=== PATIENT | female | born 1940 ===

== ENCOUNTER 2023-01-05 19:09 | Outpatient (BNV) | payer MEDICARE, MEDICAID, SELFPAY | END 2023-01-05 23:12 | PROVIDERS: Admitting Provider Psychiatry & Neurology Psychiatry; Visit Provider Internal Medicine Cardiovascular Disease | DX: I49.3 Ventricular premature depolarization (principal) | CPT/HCPCS: 93010 ==

== ENCOUNTER 2023-01-05 19:09 | Inpatient (IN) | payer MEDICARE, MEDICAID, SELFPAY ==
--- NOTE | 2023-01-05 | ECG_ITS ---
Test Reason : tranfer pt,r/o qtc prolongation Blood Pressure : / mmHG Vent. Rate : 093 BPM Atrial Rate : 093 BPM P-R Int : 180 ms QRS Dur : 074 ms QT Int : 380 ms P-R-T Axes : 074 059 069 degrees QTc Int : 472 ms Sinus rhythm with occasional Premature ventricular complexes Otherwise normal ECG No previous ECGs available Referred By: Jenny Martin Electronically Signed By:Enrico Shaw
[2023-01-05 19:55] VITALS: BP 158/69; PULSE 102; RESP 18; TEMP 36.7; O2SAT 96
[2023-01-05 21:23] LABS: Glucose, Whole Blood 128 mg/dL (60-115)
[2023-01-05] MEDS: Atorvastatin Calcium 20 MG TABLET 40 MG PO (21:34)
[2023-01-05] MEDS: hydrOXYzine HCL 25 MG TABLET PO (21:34)
[2023-01-05] MEDS: Mirtazapine 7.5 MG TABLET PO (21:34)
--- NOTE | 2023-01-06 00:09 | PC.ADMIT ---
Patient admitted to S1 on 01/05/23 at 1945 on 12b from [facility] due to increased aggressive behavior at correction. Staff at correction reports that patient? has been increasingly aggressive for several days which made several peers and staff feel unsafe. Patient has PMH of HLD, CAD, CHF, COPD, DM type 2 (on metformin), Upon arrival to the unit, patient is alert to self and year, otherwise pleasantly confused. Impulsive at times, but is able to be redirected. She is ambulating with walker, steady gait. Vital signs are stable, POC obtained. Patient is med compliant. Denies SI/HI/AH/VH but t/w did notice patient making remarks about other men being present around her, when there was no one there. Patient is too confused to participate in admission process, unable to answer any questions appropriately. One LEXI signed for daughterHattie (HCP).
[2023-01-06] MEDS: traZODone HCL 50 MG TABLET PO (01:06)
[2023-01-06] MEDS: Melatonin 3 MG TABLET 6 MG PO (01:06)
[2023-01-06 06:00] VITALS: BP 183/72; PULSE 91; RESP 18; TEMP 36; O2SAT 97
[2023-01-06 08:24] LABS: Estimated Average Glucose 171 mg/dL; Hemoglobin A1c % 7.6 %
[2023-01-06 08:48] LABS: Anion Gap 12 (12-20); Blood Urea Nitrogen 27 mg/dL (9-16); Calcium 9.2 mg/dL (8.4-10.2); Carbon Dioxide 25 mmol/L (22-29); Chloride 106 mmol/L (96-108); Estimated Glomerular Filt Rate 39; Glucose Random 133 mg/dL (60-115); Sodium 139 mmol/L (135-145)
[2023-01-06 08:58] LABS: Cholesterol 138 mg/dL; HDL Cholesterol 36 mg/dL; LDL Cholesterol Calculated 63 mg/dl; Magnesium 1.4 mg/dL (1.6-2.6); Triglycerides 196 mg/dL
[2023-01-06] MEDS: Albuterol/Iprat 2.5/0.5MG 3 ML AMPUL.NEB INHALE ×3 (09:05→20:50)
[2023-01-06] MEDS: Fluticasone/Vilanterol 200/25 BLST.W.DEV 1 PUFF INHALE (09:05)
[2023-01-06 09:13] LABS: Folate 12.6 ng/mL (> or = 4.0); Vitamin B12 587 pg/mL (200-900)
[2023-01-06 09:16] VITALS: PULSE 68; RESP 14; O2SAT 98
[2023-01-06] MEDS: metFORMIN HCl 1,000 MG TABLET 1000 MG PO ×2 (09:22→16:58)
[2023-01-06] MEDS: Fenofibrate 160 MG TABLET PO (09:22)
--- NOTE | 2023-01-06 10:41 | P.HPPS_ITS ---
HPI Date of Service: 01/06/23 Chief Complaint: F03.91 Sources of Information: patient interviewed, chart reviewed and crisis/core team assessment reviewed HPI Subjective Notes: [place] Warning and Conditional Voluntary Narrative: The patient is an 82-year-old female, with a were, mother of adult children, referred from the shelter facility to emergency room due to worsening agitation against peers and staff. The patient carries a diagnosis of dementia, she had prior strokes in 2020 and she had several medical comorbidit ies such as CAD, CHF and diabetes type 2. The patient was assessed on the emergency room, medically cleared and transferring to this facility for psychiatric stabilization. According to the crisis assessment, the patient in the ED thought that she was on a recent shipwreck and she was waiting for the next ship to board. On interview, the patient was very pleasant and cooperative but extremely confused, she did not know where she was and she wanted her family to let them know that she was here in this hospital. She denies auditory hallucinations, paranoia or visual hallucinations. Even though, she was very confused. We will try to gather more collateral information. Past Psychiatric History: According to the crisis assessment, the patient carries a diagnosis of dementia and she had 2 strokes 2 years ago. The patient is a very poor historian unable to provide past psychiatric history. Medical Evaluation Reviewed: Yes [facility] Medical History CHF (congestive heart failure) Chronic pain of right hand COPD (chronic obstructive pulmonary disease) Coronary artery disease GERD (gastroesophageal reflux disease) History of CA (myocardial infarction) Hyperlipidemia Hypertension Mitral regurgitation Osteoporosis Type 2 diabetes mellitus Surgical History Status post coronary angioplasty Family History: Denies Social History: Unable to get more information Substance History: Denies Trauma History: Denies Diagnostics Vital Signs (24Hr): Vital Signs - 24 hr 01/05/23 19:55 01/06/23 09:16 01/06/23 06:00 Temperature 98.0 F 96.8 F Pulse Rate 102 H 68 91 Respiratory Rate 18 14 18 Blood Pressure 158/69 H 183/72 H Pulse Oximetry 96 97 Oxygen Delivery Method Room Air Room Air Labs 01/06/23 08:02 Labs: Laboratory Results - last 48 hr 01/05/23 01/06/23 01/06/23 21:18 08:02 08:02 Sodium Potassium Chloride Carbon Dioxide Anion Gap BUN Creatinine Estim Creat Clear Calc Estimated GFR POC Glucose 128 H Random Glucose Estimat Average Glucose 171 Hemoglobin A1c % 7.6 Calcium Magnesium 1.4 L* Triglycerides 196 Cholesterol 138 LDL Cholesterol, Calc 63 HDL Cholesterol 36 Vitamin B12 Folate TSH 2.00 Free T4 1.10 01/06/23 01/06/23 08:02 08:02 Sodium 139 Potassium 4.0 Chloride 106 Carbon Dioxide 25 Anion Gap 12 BUN 27 H Creatinine 1.30 Estim Creat Clear Calc TNP Estimated GFR 39 POC Glucose Random Glucose 133 H Estimat Average Glucose Hemoglobin A1c % Calcium 9.2 Magnesium Triglycerides Cholesterol LDL Cholesterol, Calc HDL Cholesterol Vitamin B12 587 Folate 12.6 TSH Free T4 Meds/Allergies Allergies Allergies Allergy/AdvReac Type Severity Reaction Status Date / Time ibuprofen Allergy Unknown Unknown Verified 01/05/23 19:31 lansoprazole [From Prevacid] Allergy Unknown Unknown Verified 01/05/23 19:31 rosuvastatin [From Crestor] Allergy Unknown Unknown Verified 01/05/23 19:31 lipitor Allergy Unknown Unknown Uncoded 01/05/23 19:31 Mental Status Exam Mental Status Exam Patient Appearance: Appropriate (On hospital gowns) Patient Orientation: Person, Place and Situation Level of Consciousness: Awake, Disoriented and Alert Patient Behavior: Guarded and Passive Mood Description: Withdrawn Affect Description: Labile Patient Cognition Impaired: Yes Ability to Follow Directions: Fair Speech Pattern: Clear and Impoverished Hallucinations: None Delusions: Not Present Thought Process: Incoherent, Illogical and Distracted Thought Content: positive for [place] and positive for [place] of Content Judgement: Poor Assessment & Plan Assessment & Plan (1) Dementia: Status: Acute Code(s): F03.90 - Unspecified dementia, unspecified severity, without behavioral disturbance, psychotic disturbance, mood disturbance, and anxiety (2) Mood disorder: Status: Acute Code(s): F39 - Unspecified mood [affective] disorder Plan The patient is an elderly female with a prior history of status post strokes, CAD, CHF, diabetes type 2 and other medical comorbidities referred from the shelter facility to the emergency room due to increased agitation and confusion. The patient is very confused, very poor historian with try to gather more information from collaterals. At the moment of the intake, there was no evidence of medical concerns or exacerbation of agitation. Plan 1. Gather collateral information. The patient is a very poor historian. 2. We will continue with medical workout and follow recommendations of Medicine. 3. It seems that the patient's dementia is very advanced so will start with a low dose of Aricept tonight. 4. Since there was the evidence of prior agitation and poor impulse control we will start on a very low dose of Depakote at night. 5. Reassessment with results Patient educated on: diagnosis Informed Consent: does not understand Reason for continued inpatient stay Substantial Risk for: inability to function, rapid decompensation and med/psych decompensation Statement Statement: I have reviewed the history and physical and performed a pertinent examination on my patient. No changes have occurred unless specified. If the History and Physical was not performed prior to admission, the Hospitalist's service will be consulted for completing the admission physical. Time Spent With Patient Time: Total time managing care of this patient today __45__ minutes.
--- NOTE | 2023-01-06 12:04 | HO.PM.IMCN ---
History of Present Illness Data of Consult Service Date: 01/06/23 Requesting physician: Figueroa Peña Primary Care Provider: Unknown Physician HPI Reason for consult: medical management 82-year-old female with history of chronic right hand pain, [id number]-eezerlbte type 2 diabetes, diabetic cataracts, CHF, coronary artery disease with history LA s/p PCI in 2018 and ANJALI 2004, mitral regurgitation, GERD, osteoporosis, and hyperlipidemia admitted to Psychiatry from [facility] with consult placed to hospitalist service for medical H&P. She resides val SNF and has had increased confusion and agitation. While in the ED, urinalysis was unremarkable. She was noted have a normocytic anemia with H/H 10.45/32.3%. GFR was 54. Magnesium was 1.1. EKG showed normal sinus rhythm, rate 87, no ST T wave abnormality. Chest x-ray was negative. She is a former smoker who quit in 2003 is not use any illicit drugs or alcohol use. She has no complaints at this time. Review of Systems Review of Systems: General: No fevers, malaise, unintentional weight loss HEENT: No blurred vision, diplopia. No sore throat, nasal congestion, rhinorrhea, sinus pain, ear pain Cardiovascular: No chest pain, palpitations, or leg edema Respiratory: No shortness of breath, wheezing, cough GI: No abdominal pain, nausea, vomiting, diarrhea, constipation, melena, hematochezia : No dysuria, hematuria, increased urinary frequency, decreased urinary output MSK: No myalgia, back pain Neuro: No headaches, weakness, paresthesias Skin: No rashes or lesions [facility] Medical History CHF (congestive heart failure) Chronic pain of right hand COPD (chronic obstructive pulmonary disease) Coronary artery disease GERD (gastroesophageal reflux disease) History of LA (myocardial infarction) Hyperlipidemia Hypertension Mitral regurgitation Osteoporosis Type 2 diabetes mellitus Surgical History Status post coronary angioplasty Social History Household Members: Unknown / Unable to assess Housing: House Patient Tobacco Use Status: Former Tobacco user Quit Date: quit in 2003 Patient Interested in Nicotine Replacement: No Patient Given Instructions on How to Stop Smoking: No Use of substances other than those prescribed or required for medical reasons: No Currently Displaying Signs/Symptoms of Drug Intoxication Withdrawal: No Spiritual Healthcare Practices: unable to answer Yarsani Healthcare Practices: unable to answer Advance Directives: No Advance Directives Information Provided: No Do you have thoughts of harming others: None Do you have a plan to hurt others: No Plan Recently lost weight without trying: Unsure Patient : No : No Poor oral hygiene: No Meds Allergies Allergy/AdvReac Type Severity Reaction Status Date / Time ibuprofen Allergy Unknown Unknown Verified 01/05/23 19:31 lansoprazole [From Prevacid] Allergy Unknown Unknown Verified 01/05/23 19:31 rosuvastatin [From Crestor] Allergy Unknown Unknown Verified 01/05/23 19:31 lipitor Allergy Unknown Unknown Uncoded 01/05/23 19:31 Active Medications: Current Medications Acetaminophen (Acetaminophen 325 Mg Tablet) 650 mg PO Q6H PRN PRN Reason: Headache/Pain Mild Scale (1-3) Al Hydroxide/Mg Hydroxide (Magnesium Hydrox/Alum Hydrox 30 Ml Oral.Susp) 30 ml PO Q6H PRN PRN Reason: Heartburn/Nausea Albuterol/Ipratropium (Albuterol/Iprat 2.5/0.5mg 3 Ml Ampul.Neb) 3 ml INHALE RQ6H WHILE AWAKE [facility] Last Admin: 01/06/23 09:05 Dose: 3 ml Atorvastatin Calcium (Atorvastatin Calcium 20 Mg Tablet) 40 mg PO BEDTIME [facility] Last Admin: 01/05/23 21:34 Dose: 40 mg Fenofibrate (Fenofibrate 160 Mg Tablet) 160 mg PO DAILY [facility] Last Admin: 01/06/23 09:22 Dose: 160 mg Fluticasone/Vilanterol (Fluticasone/Vilanterol 200/25 Blst.W.Dev) 1 puff INHALE RDAILY [facility] Last Admin: 01/06/23 09:05 Dose: 1 puff Magnesium Hydroxide (Milk Of Magnesia 30 Ml Oral.Susp) 30 ml PO DAILY PRN PRN Reason: Constipation Melatonin (Melatonin 3 Mg Tablet) 6 mg PO BEDTIME PRN PRN Reason: Insomnia Last Admin: 01/06/23 01:06 Dose: 6 mg Metformin HCl (Metformin Hcl 1,000 Mg Tablet) 1,000 mg PO BIDWM [facility] Last Admin: 01/06/23 09:22 Dose: 1,000 mg Mirtazapine (Mirtazapine 7.5 Mg Tablet) 7.5 mg PO BEDTIME VERA Last Admin: 01/05/23 21:34 Dose: 7.5 mg Olanzapine (Olanzapine 5 Mg Tablet) 5 mg PO Q6H PRN PRN Reason: agitation, aggression Trazodone HCl (Trazodone Hcl 50 Mg Tablet) 50 mg PO BEDTIME MRX1 PRN PRN Reason: Insomnia Last Admin: 01/06/23 01:06 Dose: 50 mg Trazodone HCl (Trazodone Hcl 25 Mg Halftab) 25 mg PO TID PRN PRN Reason: Anxiety Physical Exam Vital Signs and Narrative: Vital Signs: Last Vital Signs Temp 96.8 F 01/06/23 06:00 Pulse 68 01/06/23 09:16 Resp 14 01/06/23 09:16 BP 183/72 H 01/06/23 06:00 Pulse Ox 97 01/06/23 06:00 O2 Del Method Room Air 01/06/23 06:00 Constitutional - Awake and Alert, No apparent distress Eyes - PERRLA, EOMI Cardiovascular - S1S2, RRR, No edema Respiratory - Normal lung expansion, Normal respiratory effort, No respiratory distress, CTA bilaterally Gastrointestinal - NT / ND; +BS; No rebound or guarding Extremities - no calf tenderness bilaterally, no swelling Musculoskeletal - Normal inspection, normal ROM Skin - Warm/Dry Neurological - Alert & oriented x3, CN II-XII in tact, 5/5 strength BUE and BLE Psychological - Appropriate affect Results Labs 01/06/23 08:02 Labs: Laboratory Results - last 24 hr 01/05/23 01/06/23 01/06/23 21:18 08:02 08:02 Anion Gap Estim Creat Clear Calc Estimated GFR POC Glucose 128 H Random Glucose Estimat Average Glucose 171 Hemoglobin A1c % 7.6 Calcium Magnesium 1.4 L* Triglycerides 196 Cholesterol 138 LDL Cholesterol, Calc 63 HDL Cholesterol 36 Vitamin B12 Folate TSH 2.00 Free T4 1.10 01/06/23 01/06/23 08:02 08:02 Anion Gap 12 Estim Creat Clear Calc TNP Estimated GFR 39 POC Glucose Random Glucose 133 H Estimat Average Glucose Hemoglobin A1c % Calcium 9.2 Magnesium Triglycerides Cholesterol LDL Cholesterol, Calc HDL Cholesterol Vitamin B12 587 Folate 12.6 TSH Free T4 Assessment and Plan (1) Routine medical exam: Status: Acute (2) Hypomagnesemia: Status: Acute Plan 82-year-old female with history of chronic right hand pain, lmy-zjtzuvn-esleugehh type 2 diabetes, diabetic cataracts, CHF, COPD, coronary artery disease with history LA s/p PCI in 2018 and ANJALI 2004, mitral regurgitation, GERD, osteoporosis, and hyperlipidemia admitted to Psychiatry from [facility] with consult placed to hospitalist service for medical H&P. #Confusion/aggitation -No infectious etiology -Plan per psychiatry # hypomagnesemia -Mag 1.1 in ED, repleted. Today 1.4 -Initiate mag oxide 400mg BID -Repeat BMP, mag am # lxp-odjuihx-zdxsftace type 2 diabetes -reasonably controlled for patient's age with hemoglobin A1c 7.6% -POC glucose -diabetic diet if possible -continue metformin -Humalog on sliding scale for hyperglycemia # COPD -no acute exacerbation -continue Symbicort, albuterol p.r.n. # CAD/HLD -no anginal chest pain -EKG without any acute ischemic changes reviewed from [facility] -continue ASA, statin Thank you for allowing me to participate in this consult. Signing off at this time. Please do not hesitate to call for further questions. Time Spent With Patient Time: Total time managing care of this patient today ____ minutes.
[2023-01-06] MEDS: Magnesium Oxide 400 MG TABLET PO ×2 (12:24→16:58)
[2023-01-06 14:40] VITALS: PULSE 76; RESP 16; O2SAT 98
[2023-01-06 16:36] LABS: Glucose, Whole Blood 213 mg/dL (60-115)
[2023-01-06] MEDS: Insulin Lispro 100 UNIT/ML 3 ML VIAL SUBCUT (16:58)
[2023-01-06 18:00] VITALS: BP 137/65; PULSE 108; RESP 18; TEMP 36.6; O2SAT 98
[2023-01-06 20:42] LABS: Glucose, Whole Blood 98 mg/dL (60-115)
[2023-01-06] MEDS: Mirtazapine 7.5 MG TABLET PO (20:48)
[2023-01-06] MEDS: Donepezil HCl 5 MG TABLET PO (20:48)
[2023-01-06] MEDS: Divalproex Sodium 250 MG TABLET.DR PO (20:48)
[2023-01-06 20:50] VITALS: PULSE 98; RESP 20; O2SAT 96
[2023-01-07 08:00] VITALS: BP 126/59; PULSE 97; RESP 18; TEMP 36.7
[2023-01-07 08:29] LABS: Anion Gap 15 (12-20); Blood Urea Nitrogen 25 mg/dL (9-16); Calcium 9.3 mg/dL (8.4-10.2); Carbon Dioxide 22 mmol/L (22-29); Chloride 107 mmol/L (96-108); Estimated Glomerular Filt Rate 48; Glucose Random 133 mg/dL (60-115); Magnesium 1.7 mg/dL (1.6-2.6); Potassium 4.5 mmol/L (3.3-5.1); Sodium 139 mmol/L (135-145)
[2023-01-07] MEDS: metFORMIN HCl 1,000 MG TABLET 1000 MG PO ×2 (08:40→16:47)
[2023-01-07] MEDS: Magnesium Oxide 400 MG TABLET PO ×2 (08:40→16:47)
[2023-01-07] MEDS: Fenofibrate 160 MG TABLET PO (08:41)
[2023-01-07 09:48] LABS: Glucose, Whole Blood 147 mg/dL (60-115)
[2023-01-07] MEDS: Fluticasone/Vilanterol 200/25 BLST.W.DEV 1 PUFF INHALE (10:33)
[2023-01-07 11:33] LABS: Glucose, Whole Blood 195 mg/dL (60-115)
--- NOTE | 2023-01-07 13:16 | HO.PSYCHPN ---
Subjective Subjective Date of Service: 01/07/23 Reason For Visit: F03.91 Subjective Notes: Conditional Voluntary Interim History: The nursing staff reported the patient had been pleasantly confused no evidence of aggression or agitation. She stated that she was kicked out of her halfway facility because she was voided out. On admission the ED she stated that she was on a shaver rec. On interview she is pleasantly confused easily redirectable. The occupational therapy reported that she score 9/30 on the [place]. Advanced dementia Mental Status Exam Mental Status Exam Patient Appearance: Well Grooomed and Appropriate Patient Orientation: Person Level of Consciousness: Awake and Appropriate Patient Behavior: Guarded and Passive Mood Description: Withdrawn Affect Description: Constricted Patient Cognition Impaired: Yes Ability to Follow Directions: Good Speech Pattern: Clear Hallucinations: None Delusions: Ideas of Reference and Bizarre Thought Process: Illogical and Distracted Thought Content: positive for [place], positive for Thought Blocking and positive for Incoherent Judgement: Poor Diagnostics Vital Signs (24Hr): Vital Signs - 24 hr 01/06/23 14:40 01/06/23 20:50 01/06/23 18:00 Temperature 97.8 F Pulse Rate 76 98 108 H Respiratory Rate 16 20 18 Blood Pressure 137/65 Pulse Oximetry 98 Oxygen Delivery Method Room Air 01/07/23 08:00 Temperature 98.0 F Pulse Rate 97 Respiratory Rate 18 Blood Pressure 126/59 L Pulse Oximetry Oxygen Delivery Method Labs 01/07/23 07:58 Labs: Laboratory Results - last 48 hr 01/05/23 01/06/23 01/06/23 21:18 08:02 08:02 Sodium Potassium Chloride Carbon Dioxide Anion Gap BUN Creatinine Estim Creat Clear Calc Estimated GFR POC Glucose 128 H Random Glucose Estimat Average Glucose 171 Hemoglobin A1c % 7.6 Calcium Magnesium 1.4 L* Triglycerides 196 Cholesterol 138 LDL Cholesterol, Calc 63 HDL Cholesterol 36 Vitamin B12 Folate TSH 2.00 Free T4 1.10 01/06/23 01/06/23 01/06/23 08:02 08:02 16:31 Sodium 139 Potassium 4.0 Chloride 106 Carbon Dioxide 25 Anion Gap 12 BUN 27 H Creatinine 1.30 Estim Creat Clear Calc TNP Estimated GFR 39 POC Glucose 213 H Random Glucose 133 H Estimat Average Glucose Hemoglobin A1c % Calcium 9.2 Magnesium Triglycerides Cholesterol LDL Cholesterol, Calc HDL Cholesterol Vitamin B12 587 Folate 12.6 TSH Free T4 07/19/23 07/20/23 07/20/23 20:38 07:58 07:59 Sodium 139 Potassium 4.5 Chloride 107 Carbon Dioxide 22 Anion Gap 15 BUN 25 H Creatinine 1.09 Estim Creat Clear Calc TNP Estimated GFR 48 POC Glucose 98 147 H Random Glucose 133 H Estimat Average Glucose Hemoglobin A1c % Calcium 9.3 Magnesium 1.7 Triglycerides Cholesterol LDL Cholesterol, Calc HDL Cholesterol Vitamin B12 Folate TSH Free T4 01/07/23 11:28 Sodium Potassium Chloride Carbon Dioxide Anion Gap BUN Creatinine Estim Creat Clear Calc Estimated GFR POC Glucose 195 H Random Glucose Estimat Average Glucose Hemoglobin A1c % Calcium Magnesium Triglycerides Cholesterol LDL Cholesterol, Calc HDL Cholesterol Vitamin B12 Folate TSH Free T4 Medications Medications Current Medications Acetaminophen (Acetaminophen 325 Mg Tablet) 650 mg PO Q6H PRN PRN Reason: Headache/Pain Mild Scale (1-3) Al Hydroxide/Mg Hydroxide (Magnesium Hydrox/Alum Hydrox 30 Ml Oral.Susp) 30 ml PO Q6H PRN PRN Reason: Heartburn/Nausea Albuterol/Ipratropium (Albuterol/Iprat 2.5/0.5mg 3 Ml Ampul.Neb) 3 ml INHALE RQ6H WHILE AWAKE [facility] Last Admin: 01/07/23 08:24 Dose: Not Given Dextrose (Dextrose 50 % 25 Gm/50 Ml Syringe) 25 gm IVPUSH Q15M PRN; Protocol PRN Reason: per Hypoglycemia Standing Ord. Divalproex Sodium (Divalproex Sodium 250 Mg Tablet.Dr) 250 mg PO BEDTIME [facility] Last Admin: 01/06/23 20:48 Dose: 250 mg Donepezil HCl (Donepezil Hcl 5 Mg Tablet) 5 mg PO BEDTIME [facility] Last Admin: 01/06/23 20:48 Dose: 5 mg Fenofibrate (Fenofibrate 160 Mg Tablet) 160 mg PO DAILY [facility] Last Admin: 01/07/23 08:41 Dose: 160 mg Fluticasone/Vilanterol (Fluticasone/Vilanterol 200/25 Blst.W.Dev) 1 puff INHALE RDAILY [facility] Last Admin: 01/07/23 10:33 Dose: 1 puff Glucose (Glucose Gel 15 Gm Gel..Gram.) 15 gm PO Q15M PRN; Protocol PRN Reason: per Hypoglycemia Standing Ord. Insulin Human Lispro (Insulin Lispro 100 Unit/Ml 3 Ml Vial) 0 unit SUBCUT QIDACHS [facility]; Protocol Last Admin: 01/07/23 12:02 Dose: Not Given Magnesium Hydroxide (Milk Of Magnesia 30 Ml Oral.Susp) 30 ml PO DAILY PRN PRN Reason: Constipation Magnesium Oxide (Magnesium Oxide 400 Mg Tablet) 400 mg PO BIDPC [facility] Last Admin: 01/07/23 08:40 Dose: 400 mg Melatonin (Melatonin 3 Mg Tablet) 6 mg PO BEDTIME PRN PRN Reason: Insomnia Last Admin: 01/06/23 01:06 Dose: 6 mg Metformin HCl (Metformin Hcl 1,000 Mg Tablet) 1,000 mg PO BIDWM [facility] Last Admin: 01/07/23 08:40 Dose: 1,000 mg Mirtazapine (Mirtazapine 7.5 Mg Tablet) 7.5 mg PO BEDTIME [facility] Last Admin: 01/06/23 20:48 Dose: 7.5 mg Olanzapine (Olanzapine 5 Mg Tablet) 5 mg PO Q6H PRN PRN Reason: agitation, aggression Trazodone HCl (Trazodone Hcl 50 Mg Tablet) 50 mg PO BEDTIME MRX1 PRN PRN Reason: Insomnia Last Admin: 01/06/23 01:06 Dose: 50 mg Trazodone HCl (Trazodone Hcl 25 Mg Halftab) 25 mg PO TID PRN PRN Reason: Anxiety Allergies Allergies Allergy/AdvReac Type Severity Reaction Status Date / Time ibuprofen Allergy Unknown Unknown Verified 01/05/23 19:31 lansoprazole [From Prevacid] Allergy Unknown Unknown Verified 01/05/23 19:31 rosuvastatin [From Crestor] Allergy Unknown Unknown Verified 01/05/23 19:31 lipitor Allergy Unknown Unknown Uncoded 01/05/23 19:31 Assessment & Plan Assessment & Plan (1) Dementia: Status: Acute Code(s): F03.90 - Unspecified dementia, unspecified severity, without behavioral disturbance, psychotic disturbance, mood disturbance, and anxiety (2) Mood disorder: Status: Acute Code(s): F39 - Unspecified mood [affective] disorder Plan The patient is an elderly female with a prior history of status post strokes, CAD, CHF, diabetes type 2 and other medical comorbidities referred from the halfway facility to the emergency room due to increased agitation and confusion. The patient is very confused, very poor historian with try to gather more information from collaterals. At the moment of the intake, there was no evidence of medical concerns or exacerbation of agitation. Plan 1. Gather collateral information. The patient is a very poor historian. 2. We will continue with medical workout and follow recommendations of Medicine. 3. It seems that the patient's dementia is very advanced so will start with a low dose of Aricept tonight. 4. Since there was the evidence of prior agitation and poor impulse control we will start on a very low dose of Depakote at night. 5. Reassessment with results Reason for continued inpatient stay Substantial Risk for: inability to function, rapid decompensation and med/psych decompensation Time Spent With Patient Time: Total time managing care of this patient today __20__ minutes.
[2023-01-07] MEDS: Albuterol/Iprat 2.5/0.5MG 3 ML AMPUL.NEB INHALE ×2 (13:31→20:39)
[2023-01-07 13:34] VITALS: PULSE 110; RESP 16; O2SAT 98
[2023-01-07 16:41] LABS: Glucose, Whole Blood 166 mg/dL (60-115)
[2023-01-07] MEDS: Insulin Lispro 100 UNIT/ML 3 ML VIAL SUBCUT ×2 (16:48→21:03)
[2023-01-07 18:00] VITALS: BP 147/61; PULSE 112; RESP 18; TEMP 36.5; O2SAT 95
[2023-01-07 20:16] LABS: Glucose, Whole Blood 230 mg/dL (60-115)
[2023-01-07] MEDS: Donepezil HCl 5 MG TABLET PO (20:31)
[2023-01-07] MEDS: Mirtazapine 7.5 MG TABLET PO (20:31)
[2023-01-07] MEDS: Divalproex Sodium 250 MG TABLET.DR PO (20:31)
[2023-01-07 20:40] VITALS: PULSE 107; O2SAT 98
[2023-01-08] MEDS: Melatonin 3 MG TABLET 6 MG PO (00:29)
[2023-01-08] MEDS: traZODone HCL 50 MG TABLET PO (00:29)
[2023-01-08] MEDS: Albuterol/Iprat 2.5/0.5MG 3 ML AMPUL.NEB INHALE (07:57)
[2023-01-08] MEDS: Fluticasone/Vilanterol 200/25 BLST.W.DEV 1 PUFF INHALE (07:57)
[2023-01-08 07:58] VITALS: PULSE 91; RESP 16; O2SAT 97
[2023-01-08 08:17] LABS: Glucose, Whole Blood 129 mg/dL (60-115)
[2023-01-08 08:49] VITALS: BP 133/96; PULSE 92; RESP 20; TEMP 36.5; O2SAT 96
[2023-01-08] MEDS: metFORMIN HCl 1,000 MG TABLET 1000 MG PO ×2 (08:53→16:22)
[2023-01-08] MEDS: Fenofibrate 160 MG TABLET PO (08:53)
[2023-01-08] MEDS: Magnesium Oxide 400 MG TABLET PO ×2 (08:53→16:22)
[2023-01-08 11:20] LABS: Glucose, Whole Blood 187 mg/dL (60-115)
[2023-01-08] MEDS: Insulin Lispro 100 UNIT/ML 3 ML VIAL SUBCUT ×3 (11:26→20:29)
--- NOTE | 2023-01-08 14:39 | HO.PSYCHPN ---
Subjective Subjective Date of Service: 01/08/23 Reason For Visit: F03.91 Subjective Notes: Conditional Voluntary Interim History: The nursing staff reported the patient slept well she is only oriented to self and she has been suspicious and she has to her medications she refused insulin. Her conditional voluntary was signed by the healthcare proxy. On interview the patient is pleasantly confused easily redirectable. Mental Status Exam Mental Status Exam Patient Appearance: Appropriate Patient Orientation: Person Level of Consciousness: Awake Patient Behavior: Guarded and Passive Mood Description: Withdrawn Affect Description: Constricted Patient Cognition Impaired: Yes Ability to Follow Directions: Good Speech Pattern: Clear Hallucinations: None Delusions: Not Present Thought Process: Distracted Thought Content: positive for M[place]askill and positive for Poverty of Content Judgement: Fair Diagnostics Vital Signs (24Hr): Vital Signs - 24 hr 01/07/23 18:00 01/07/23 20:40 01/08/23 07:58 Temperature 97.7 F Pulse Rate 112 H 107 H 91 Respiratory Rate 18 16 Blood Pressure 147/61 H Pulse Oximetry 95 Oxygen Delivery Method Room Air 01/08/23 08:49 Temperature 97.7 F Pulse Rate 92 Respiratory Rate 20 Blood Pressure 133/96 H Pulse Oximetry 96 Oxygen Delivery Method Room Air Labs 01/07/23 07:58 Labs: Laboratory Results - last 48 hr 01/06/23 01/06/23 01/07/23 16:31 20:38 07:58 Sodium 139 Potassium 4.5 Chloride 107 Carbon Dioxide 22 Anion Gap 15 BUN 25 H Creatinine 1.09 Estim Creat Clear Calc TNP Estimated GFR 48 POC Glucose 213 H 98 Random Glucose 133 H Calcium 9.3 Magnesium 1.7 01/07/23 01/07/23 01/07/23 07:59 11:28 16:34 Sodium Potassium Chloride Carbon Dioxide Anion Gap BUN Creatinine Estim Creat Clear Calc Estimated GFR POC Glucose 147 H 195 H 166 H Random Glucose Calcium Magnesium 01/07/23 01/08/23 01/08/23 20:09 08:10 11:15 Sodium Potassium Chloride Carbon Dioxide Anion Gap BUN Creatinine Estim Creat Clear Calc Estimated GFR POC Glucose 230 H 129 H 187 H Random Glucose Calcium Magnesium Medications Medications Current Medications Acetaminophen (Acetaminophen 325 Mg Tablet) 650 mg PO Q6H PRN PRN Reason: Headache/Pain Mild Scale (1-3) Al Hydroxide/Mg Hydroxide (Magnesium Hydrox/Alum Hydrox 30 Ml Oral.Susp) 30 ml PO Q6H PRN PRN Reason: Heartburn/Nausea Albuterol/Ipratropium (Albuterol/Iprat 2.5/0.5mg 3 Ml Ampul.Neb) 3 ml INHALE RQ6H WHILE AWAKE [facility] Last Admin: 01/08/23 07:57 Dose: 3 ml Dextrose (Dextrose 50 % 25 Gm/50 Ml Syringe) 25 gm IVPUSH Q15M PRN; Protocol PRN Reason: per Hypoglycemia Standing Ord. Divalproex Sodium (Divalproex Sodium 250 Mg Tablet.Dr) 250 mg PO BEDTIME [facility] Last Admin: 01/07/23 20:31 Dose: 250 mg Donepezil HCl (Donepezil Hcl 5 Mg Tablet) 5 mg PO BEDTIME [facility] Last Admin: 01/07/23 20:31 Dose: 5 mg Fenofibrate (Fenofibrate 160 Mg Tablet) 160 mg PO DAILY [facility] Last Admin: 01/08/23 08:53 Dose: 160 mg Fluticasone/Vilanterol (Fluticasone/Vilanterol 200/25 Blst.W.Dev) 1 puff INHALE RDAILY [facility] Last Admin: 01/08/23 07:57 Dose: 1 puff Glucose (Glucose Gel 15 Gm Gel..Gram.) 15 gm PO Q15M PRN; Protocol PRN Reason: per Hypoglycemia Standing Ord. Insulin Human Lispro (Insulin Lispro 100 Unit/Ml 3 Ml Vial) 0 unit SUBCUT QIDACHS [facility]; Protocol Last Admin: 01/08/23 11:26 Dose: 2 unit Magnesium Hydroxide (Milk Of Magnesia 30 Ml Oral.Susp) 30 ml PO DAILY PRN PRN Reason: Constipation Magnesium Oxide (Magnesium Oxide 400 Mg Tablet) 400 mg PO BIDPC [facility] Last Admin: 01/08/23 08:53 Dose: 400 mg Melatonin (Melatonin 3 Mg Tablet) 6 mg PO BEDTIME PRN PRN Reason: Insomnia Last Admin: 01/08/23 00:29 Dose: 6 mg Metformin HCl (Metformin Hcl 1,000 Mg Tablet) 1,000 mg PO BIDWM [facility] Last Admin: 01/08/23 08:53 Dose: 1,000 mg Mirtazapine (Mirtazapine 7.5 Mg Tablet) 7.5 mg PO BEDTIME [facility] Last Admin: 01/07/23 20:31 Dose: 7.5 mg Olanzapine (Olanzapine 5 Mg Tablet) 5 mg PO Q6H PRN PRN Reason: agitation, aggression Trazodone HCl (Trazodone Hcl 50 Mg Tablet) 50 mg PO BEDTIME MRX1 PRN PRN Reason: Insomnia Last Admin: 01/08/23 00:29 Dose: 50 mg Trazodone HCl (Trazodone Hcl 25 Mg Halftab) 25 mg PO TID PRN PRN Reason: Anxiety Allergies Allergies Allergy/AdvReac Type Severity Reaction Status Date / Time ibuprofen Allergy Unknown Unknown Verified 01/05/23 19:31 lansoprazole [From Prevacid] Allergy Unknown Unknown Verified 01/05/23 19:31 rosuvastatin [From Crestor] Allergy Unknown Unknown Verified 01/05/23 19:31 lipitor Allergy Unknown Unknown Uncoded 01/05/23 19:31 Assessment & Plan Assessment & Plan (1) Dementia: Status: Acute Code(s): F03.90 - Unspecified dementia, unspecified severity, without behavioral disturbance, psychotic disturbance, mood disturbance, and anxiety (2) Mood disorder: Status: Acute Code(s): F39 - Unspecified mood [affective] disorder Plan The patient is an elderly female with a prior history of status post strokes, CAD, CHF, diabetes type 2 and other medical comorbidities referred from the [facility] to the emergency room due to increased agitation and confusion. The patient is very confused, very poor historian with try to gather more information from collaterals. At the moment of the intake, there was no evidence of medical concerns or exacerbation of agitation. Plan 1. Gather collateral information. The patient is a very poor historian. 2. We will continue with medical workout and follow recommendations of Medicine. 3. It seems that the patient's dementia is very advanced so will start with a low dose of Aricept tonight. 4. Since there was the evidence of prior agitation and poor impulse control we will start on a very low dose of Depakote at night. 5. Reassessment with results Reason for continued inpatient stay Substantial Risk for: inability to function, rapid decompensation and med/psych decompensation Time Spent With Patient Time: Total time managing care of this patient today __20__ minutes.
[2023-01-08 16:15] LABS: Glucose, Whole Blood 195 mg/dL (60-115)
[2023-01-08 19:37] VITALS: BP 141/66; PULSE 96; TEMP 36.2; O2SAT 96
[2023-01-08 20:07] LABS: Glucose, Whole Blood 160 mg/dL (60-115)
[2023-01-08] MEDS: Donepezil HCl 5 MG TABLET PO (20:29)
[2023-01-08] MEDS: Mirtazapine 7.5 MG TABLET PO (20:29)
[2023-01-08] MEDS: Divalproex Sodium 250 MG TABLET.DR PO (20:29)
[2023-01-09 08:01] LABS: Glucose, Whole Blood 123 mg/dL (60-115)
[2023-01-09] MEDS: metFORMIN HCl 1,000 MG TABLET 1000 MG PO ×2 (08:55→17:03)
[2023-01-09] MEDS: Magnesium Oxide 400 MG TABLET PO ×2 (08:55→17:03)
[2023-01-09] MEDS: Fenofibrate 160 MG TABLET PO (08:55)
[2023-01-09] MEDS: Fluticasone/Vilanterol 200/25 BLST.W.DEV 1 PUFF INHALE (08:57)
[2023-01-09 09:44] VITALS: BP 120/75; PULSE 100; RESP 18; TEMP 36.2; O2SAT 97
--- NOTE | 2023-01-09 09:53 | P.PNPSI_ITS ---
Subjective Subjective Date of Service: 01/09/23 Reason For Visit: F03.91 Subjective Notes: Conditional Voluntary Interim History: Pt complaining about daily pokes to check BS. It does seem this is new since she was admitted here to the unit. Pt also reports dry eyes. Otherwise, she reports doing well, somewhat suspicious. She states she does not like food here but states that she is used to eat junk food like potatoes chips Per nursing, pt slept through the night. She denies SI/HI. No overt VH/AH. She has declined medications and worried that medications here causing problems. Review of Systems Review of Systems General: No fevers, malaise, unintentional weight loss HEENT: No blurred vision, diplopia. No sore throat, nasal congestion, rhinorrhea, sinus pain, ear pain Cardiovascular: No chest pain, palpitations, or leg edema Respiratory: No shortness of breath, wheezing, cough GI: No abdominal pain, nausea, vomiting, diarrhea, constipation, melena, hematochezia : No dysuria, hematuria, increased urinary frequency, decreased urinary output MSK: No myalgia, back pain Neuro: No headaches, weakness, paresthesias Skin: No rashes or lesions Yes Unobtainable due to mental status Mental Status Exam Mental Status Exam Patient Appearance: Appropriate Patient Orientation: Person Level of Consciousness: Awake Patient Behavior: Guarded and Passive Mood Description: Withdrawn Affect Description: Constricted Patient Cognition Impaired: Yes Ability to Follow Directions: Good Speech Pattern: Clear Diagnostics Vital Signs (24Hr): Vital Signs - 24 hr 01/08/23 19:37 01/09/23 09:44 Temperature 97.1 F 97.2 F Pulse Rate 96 100 Respiratory Rate 18 Blood Pressure 141/66 H 120/75 Pulse Oximetry 96 97 Oxygen Delivery Method Room Air Room Air Labs 01/07/23 07:58 Labs: Laboratory Results - last 48 hr 01/07/23 01/07/23 01/07/23 11:28 16:34 20:09 POC Glucose 195 H 166 H 230 H 01/08/23 01/08/23 01/08/23 08:10 11:15 16:06 POC Glucose 129 H 187 H 195 H 01/08/23 01/09/23 19:51 07:58 POC Glucose 160 H 123 H Medications Medications Current Medications Acetaminophen (Acetaminophen 325 Mg Tablet) 650 mg PO Q6H PRN PRN Reason: Headache/Pain Mild Scale (1-3) Al Hydroxide/Mg Hydroxide (Magnesium Hydrox/Alum Hydrox 30 Ml Oral.Susp) 30 ml PO Q6H PRN PRN Reason: Heartburn/Nausea Dextrose (Dextrose 50 % 25 Gm/50 Ml Syringe) 25 gm IVPUSH Q15M PRN; Protocol PRN Reason: per Hypoglycemia Standing Ord. Divalproex Sodium (Divalproex Sodium 250 Mg Tablet.Dr) 250 mg PO BEDTIME [facility] Last Admin: 01/08/23 20:29 Dose: 250 mg Donepezil HCl (Donepezil Hcl 5 Mg Tablet) 5 mg PO BEDTIME [facility] Last Admin: 01/08/23 20:29 Dose: 5 mg Fenofibrate (Fenofibrate 160 Mg Tablet) 160 mg PO DAILY [facility] Last Admin: 01/09/23 08:55 Dose: 160 mg Fluticasone/Vilanterol (Fluticasone/Vilanterol 200/25 Blst.W.Dev) 1 puff INHALE RDAILY [facility] Last Admin: 01/09/23 08:57 Dose: 1 puff Glucose (Glucose Gel 15 Gm Gel..Gram.) 15 gm PO Q15M PRN; Protocol PRN Reason: per Hypoglycemia Standing Ord. Insulin Human Lispro (Insulin Lispro 100 Unit/Ml 3 Ml Vial) 0 unit SUBCUT QIDACHS [facility]; Protocol Last Admin: 01/09/23 08:08 Dose: Not Given Magnesium Hydroxide (Milk Of Magnesia 30 Ml Oral.Susp) 30 ml PO DAILY PRN PRN Reason: Constipation Magnesium Oxide (Magnesium Oxide 400 Mg Tablet) 400 mg PO BIDPC [facility] Last Admin: 01/09/23 08:55 Dose: 400 mg Melatonin (Melatonin 3 Mg Tablet) 6 mg PO BEDTIME PRN PRN Reason: Insomnia Last Admin: 01/08/23 00:29 Dose: 6 mg Metformin HCl (Metformin Hcl 1,000 Mg Tablet) 1,000 mg PO BIDWM [facility] Last Admin: 01/09/23 08:55 Dose: 1,000 mg Mirtazapine (Mirtazapine 7.5 Mg Tablet) 7.5 mg PO BEDTIME [facility] Last Admin: 01/08/23 20:29 Dose: 7.5 mg Olanzapine (Olanzapine 5 Mg Tablet) 5 mg PO Q6H PRN PRN Reason: agitation, aggression Trazodone HCl (Trazodone Hcl 50 Mg Tablet) 50 mg PO BEDTIME MRX1 PRN PRN Reason: Insomnia Last Admin: 01/08/23 00:29 Dose: 50 mg Trazodone HCl (Trazodone Hcl 25 Mg Halftab) 25 mg PO TID PRN PRN Reason: Anxiety Allergies Allergies Allergy/AdvReac Type Severity Reaction Status Date / Time ibuprofen Allergy Unknown Unknown Verified 01/05/23 19:31 lansoprazole [From Prevacid] Allergy Unknown Unknown Verified 01/05/23 19:31 rosuvastatin [From Crestor] Allergy Unknown Unknown Verified 01/05/23 19:31 lipitor Allergy Unknown Unknown Uncoded 01/05/23 19:31 Assessment & Plan Assessment & Plan (1) Dementia: Status: Acute Code(s): F03.90 - Unspecified dementia, unspecified severity, without behavioral disturbance, psychotic disturbance, mood disturbance, and anxiety (2) Mood disorder: Status: Acute Code(s): F39 - Unspecified mood [affective] disorder Plan The patient is an elderly female with a prior history of status post strokes, CAD, CHF, diabetes type 2 and other medical comorbidities referred from the [facility] facility to the emergency room due to increased agitation and confusion. The patient is very confused, very poor historian with try to gather more information from collaterals. At the moment of the intake, there was no evidence of medical concerns or exacerbation of agitation. Plan 1. Gather collateral information. The patient is a very poor historian. 2. We will continue with medical workout and follow recommendations of Medicine. 3. It seems that the patient's dementia is very advanced so will start with a low dose of Aricept tonight. 4. Since there was the evidence of prior agitation and poor impulse control we will start on a very low dose of Depakote at night. 5. Reassessment with results 01/09 continue tx. add eye drops for dry eye Reason for continued inpatient stay Substantial Risk for: inability to function Time Spent With Patient Time: Total time managing care of this patient today ____ minutes.
[2023-01-09 11:47] LABS: Glucose, Whole Blood 162 mg/dL (60-115)
[2023-01-09] MEDS: Insulin Lispro 100 UNIT/ML 3 ML VIAL SUBCUT ×2 (12:04→16:58)
[2023-01-09 16:47] LABS: Glucose, Whole Blood 239 mg/dL (60-115)
[2023-01-09 18:00] VITALS: BP 141/63; PULSE 101; RESP 18; TEMP 36.4; O2SAT 96
[2023-01-09] MEDS: Mirtazapine 7.5 MG TABLET PO (20:09)
[2023-01-09] MEDS: Divalproex Sodium 250 MG TABLET.DR PO (20:09)
[2023-01-09] MEDS: Donepezil HCl 5 MG TABLET PO (20:09)
[2023-01-09] MEDS: traZODone HCL 50 MG TABLET PO (20:10)
[2023-01-09 20:59] LABS: Glucose, Whole Blood 111 mg/dL (60-115)
[2023-01-10 07:47] LABS: Glucose, Whole Blood 114 mg/dL (60-115)
[2023-01-10 08:28] VITALS: BP 150/67; PULSE 94; RESP 18; TEMP 36.4; O2SAT 98
[2023-01-10] MEDS: Magnesium Oxide 400 MG TABLET PO ×2 (08:44→16:43)
[2023-01-10] MEDS: Fluticasone/Vilanterol 200/25 BLST.W.DEV 1 PUFF INHALE (08:44)
[2023-01-10] MEDS: Fenofibrate 160 MG TABLET PO (08:44)
[2023-01-10] MEDS: metFORMIN HCl 1,000 MG TABLET 1000 MG PO ×2 (08:45→16:42)
[2023-01-10 11:27] LABS: Glucose, Whole Blood 134 mg/dL (60-115)
--- NOTE | 2023-01-10 12:16 | HO.PSYCHPN ---
Subjective Subjective Date of Service: 01/10/23 Reason For Visit: F03.91 Subjective Notes: Conditional Voluntary Interim History: Pt denies any concerns at this time when caption writer met with her. She reports sleeping well which was verified by nursing. Pt presents as suspicious at times. She has been taking medication per MAR. No SI/HI. Visible, slightly irritable not overly social with peers. No behavioral concerns. Medication Compliance: Yes Review of Systems Review of Systems General: No fevers, malaise, unintentional weight loss HEENT: No blurred vision, diplopia. No sore throat, nasal congestion, rhinorrhea, sinus pain, ear pain Cardiovascular: No chest pain, palpitations, or leg edema Respiratory: No shortness of breath, wheezing, cough GI: No abdominal pain, nausea, vomiting, diarrhea, constipation, melena, hematochezia : No dysuria, hematuria, increased urinary frequency, decreased urinary output MSK: No myalgia, back pain Neuro: No headaches, weakness, paresthesias Skin: No rashes or lesions Yes Unobtainable due to mental status Mental Status Exam Mental Status Exam Patient Appearance: Appropriate Patient Orientation: Person Level of Consciousness: Awake Patient Behavior: Guarded and Passive Mood Description: Withdrawn Affect Description: Constricted Patient Cognition Impaired: Yes Ability to Follow Directions: Good Speech Pattern: Clear Diagnostics Vital Signs (24Hr): Vital Signs - 24 hr 01/09/23 18:00 01/10/23 08:28 Temperature 97.6 F 97.6 F Pulse Rate 101 H 94 Respiratory Rate 18 18 Blood Pressure 141/63 H 150/67 H Pulse Oximetry 96 98 Oxygen Delivery Method Room Air Room Air Labs 01/07/23 07:58 Labs: Laboratory Results - last 48 hr 01/08/23 01/08/23 01/09/23 16:06 19:51 07:58 POC Glucose 195 H 160 H 123 H 01/09/23 01/09/23 01/09/23 11:42 16:42 20:08 POC Glucose 162 H 239 H 111 01/10/23 01/10/23 07:41 11:22 POC Glucose 114 134 H Medications Medications Current Medications Acetaminophen (Acetaminophen 325 Mg Tablet) 650 mg PO Q6H PRN PRN Reason: Headache/Pain Mild Scale (1-3) Al Hydroxide/Mg Hydroxide (Magnesium Hydrox/Alum Hydrox 30 Ml Oral.Susp) 30 ml PO Q6H PRN PRN Reason: Heartburn/Nausea Artificial Tears (Artificial Tears 15 Ml Drops) 1 drop EYE-BOTH Q4H PRN PRN Reason: eye dryness Dextrose (Dextrose 50 % 25 Gm/50 Ml Syringe) 25 gm IVPUSH Q15M PRN; Protocol PRN Reason: per Hypoglycemia Standing Ord. Divalproex Sodium (Divalproex Sodium 250 Mg Tablet.Dr) 250 mg PO BEDTIME [facility] Last Admin: 01/09/23 20:09 Dose: 250 mg Donepezil HCl (Donepezil Hcl 5 Mg Tablet) 5 mg PO BEDTIME [facility] Last Admin: 01/09/23 20:09 Dose: 5 mg Fenofibrate (Fenofibrate 160 Mg Tablet) 160 mg PO DAILY [facility] Last Admin: 01/10/23 08:44 Dose: 160 mg Fluticasone/Vilanterol (Fluticasone/Vilanterol 200/25 Blst.W.Dev) 1 puff INHALE RDAILY [facility] Last Admin: 01/10/23 08:44 Dose: 1 puff Glucose (Glucose Gel 15 Gm Gel..Gram.) 15 gm PO Q15M PRN; Protocol PRN Reason: per Hypoglycemia Standing Ord. Insulin Human Lispro (Insulin Lispro 100 Unit/Ml 3 Ml Vial) 0 unit SUBCUT QIDACHS [facility]; Protocol Last Admin: 01/10/23 11:29 Dose: Not Given Magnesium Hydroxide (Milk Of Magnesia 30 Ml Oral.Susp) 30 ml PO DAILY PRN PRN Reason: Constipation Magnesium Oxide (Magnesium Oxide 400 Mg Tablet) 400 mg PO BIDPC [facility] Last Admin: 01/10/23 08:44 Dose: 400 mg Melatonin (Melatonin 3 Mg Tablet) 6 mg PO BEDTIME PRN PRN Reason: Insomnia Last Admin: 01/08/23 00:29 Dose: 6 mg Metformin HCl (Metformin Hcl 1,000 Mg Tablet) 1,000 mg PO BIDWM [facility] Last Admin: 01/10/23 08:45 Dose: 1,000 mg Mirtazapine (Mirtazapine 7.5 Mg Tablet) 7.5 mg PO BEDTIME [facility] Last Admin: 01/09/23 20:09 Dose: 7.5 mg Olanzapine (Olanzapine 5 Mg Tablet) 5 mg PO Q6H PRN PRN Reason: agitation, aggression Trazodone HCl (Trazodone Hcl 25 Mg Halftab) 25 mg PO TID PRN PRN Reason: Anxiety Trazodone HCl (Trazodone Hcl 50 Mg Tablet) 50 mg PO BEDTIME PRN PRN Reason: Insomnia Last Admin: 01/09/23 20:10 Dose: 50 mg Allergies Allergies Allergy/AdvReac Type Severity Reaction Status Date / Time ibuprofen Allergy Unknown Unknown Verified 01/05/23 19:31 lansoprazole [From Prevacid] Allergy Unknown Unknown Verified 01/05/23 19:31 rosuvastatin [From Crestor] Allergy Unknown Unknown Verified 01/05/23 19:31 lipitor Allergy Unknown Unknown Uncoded 01/05/23 19:31 Assessment & Plan Assessment & Plan (1) Dementia: Status: Acute Code(s): F03.90 - Unspecified dementia, unspecified severity, without behavioral disturbance, psychotic disturbance, mood disturbance, and anxiety (2) Mood disorder: Status: Acute Code(s): F39 - Unspecified mood [affective] disorder Plan The patient is an elderly female with a prior history of status post strokes, CAD, CHF, diabetes type 2 and other medical comorbidities referred [facility] to the emergency room due to increased agitation and confusion. The patient is very confused, very poor historian with try to gather more information from collaterals. At the moment of the intake, there was no evidence of medical concerns or exacerbation of agitation. Plan 1. Gather collateral information. The patient is a very poor historian. 2. We will continue with medical workout and follow recommendations of Medicine. 3. It seems that the patient's dementia is very advanced so will start with a low dose of Aricept tonight. 4. Since there was the evidence of prior agitation and poor impulse control we will start on a very low dose of Depakote at night. 5. Reassessment with results 01/09 continue tx. add eye drops for dry eye 01/10 continue tx. Reason for continued inpatient stay Substantial Risk for: inability to function Time Spent With Patient Time: Total time managing care of this patient today ____ minutes.
[2023-01-10 16:28] LABS: Glucose, Whole Blood 117 mg/dL (60-115)
[2023-01-10 18:00] VITALS: BP 157/74; PULSE 90; RESP 16; TEMP 36.4; O2SAT 96
[2023-01-10 20:02] LABS: Glucose, Whole Blood 172 mg/dL (60-115)
[2023-01-10] MEDS: Insulin Lispro 100 UNIT/ML 3 ML VIAL SUBCUT (21:01)
[2023-01-10] MEDS: Divalproex Sodium 250 MG TABLET.DR PO (21:01)
[2023-01-10] MEDS: Melatonin 3 MG TABLET 6 MG PO (21:01)
[2023-01-10] MEDS: Donepezil HCl 5 MG TABLET PO (21:01)
[2023-01-10] MEDS: Mirtazapine 7.5 MG TABLET PO (21:01)
[2023-01-11 07:28] LABS: Glucose, Whole Blood 119 mg/dL (60-115)
[2023-01-11 08:17] VITALS: BP 148/76; PULSE 92; RESP 18; TEMP 36.5; O2SAT 98
[2023-01-11] MEDS: Magnesium Oxide 400 MG TABLET PO ×2 (08:20→16:38)
[2023-01-11] MEDS: Fenofibrate 160 MG TABLET PO (08:20)
[2023-01-11] MEDS: metFORMIN HCl 1,000 MG TABLET 1000 MG PO ×2 (08:20→16:38)
[2023-01-11] MEDS: Fluticasone/Vilanterol 200/25 BLST.W.DEV 1 PUFF INHALE (09:01)
--- NOTE | 2023-01-11 10:33 | P.PNPSI_ITS ---
Subjective Subjective Date of Service: 01/11/23 Reason For Visit: F03.91 Subjective Notes: Conditional Voluntary Interim History: The nursing staff reported the patient has been pleasant, confused but easily redirectable. She slept well last night and she had been fully compliant with medications. The pediatric social worker reported the plan is to go back to her [facility] facility probably next Wednesday. On interview the patient denies new symptoms, she is pleasantly confused so I informed her that we increase her Aricept up to 10 mg p.o. q.h.s. to target dementia. She was pleasant but confused me with someone else. Mental Status Exam Mental Status Exam Patient Appearance: Well Grooomed and Appropriate Patient Orientation: Person and Situation Level of Consciousness: Awake and Appropriate Patient Behavior: Guarded and Passive Mood Description: Calm Affect Description: Constricted Patient Cognition Impaired: Yes Ability to Follow Directions: Good Speech Pattern: Clear Hallucinations: None Delusions: Not Present Thought Process: Distracted and Evasive Thought Content: positive for Bastian and positive for Poverty of Content Judgement: Poor Diagnostics Vital Signs (24Hr): Vital Signs - 24 hr 01/10/23 18:00 01/11/23 08:17 Temperature 97.6 F 97.7 F Pulse Rate 90 92 Respiratory Rate 16 18 Blood Pressure 157/74 H 148/76 H Pulse Oximetry 96 98 Oxygen Delivery Method Room Air Room Air Labs 01/07/23 07:58 Labs: Laboratory Results - last 48 hr 01/09/23 01/09/23 01/09/23 11:42 16:42 20:08 POC Glucose 162 H 239 H 111 01/10/23 01/10/23 01/10/23 07:41 11:22 16:25 POC Glucose 114 134 H 117 H 01/10/23 01/11/23 19:57 07:23 POC Glucose 172 H 119 H Medications Medications Current Medications Acetaminophen (Acetaminophen 325 Mg Tablet) 650 mg PO Q6H PRN PRN Reason: Headache/Pain Mild Scale (1-3) Al Hydroxide/Mg Hydroxide (Magnesium Hydrox/Alum Hydrox 30 Ml Oral.Susp) 30 ml PO Q6H PRN PRN Reason: Heartburn/Nausea Artificial Tears (Artificial Tears 15 Ml Drops) 1 drop EYE-BOTH Q4H PRN PRN Reason: eye dryness Dextrose (Dextrose 50 % 25 Gm/50 Ml Syringe) 25 gm IVPUSH Q15M PRN; Protocol PRN Reason: per Hypoglycemia Standing Ord. Divalproex Sodium (Divalproex Sodium 250 Mg Tablet.Dr) 250 mg PO BEDTIME [facility] Last Admin: 01/10/23 21:01 Dose: 250 mg Donepezil HCl (Donepezil Hcl 10 Mg Tablet) 10 mg PO BEDTIME [facility] Fenofibrate (Fenofibrate 160 Mg Tablet) 160 mg PO DAILY [facility] Last Admin: 01/11/23 08:20 Dose: 160 mg Fluticasone/Vilanterol (Fluticasone/Vilanterol 200/25 Blst.W.Dev) 1 puff INHALE RDAILY [facility] Last Admin: 01/11/23 09:01 Dose: 1 puff Glucose (Glucose Gel 15 Gm Gel..Gram.) 15 gm PO Q15M PRN; Protocol PRN Reason: per Hypoglycemia Standing Ord. Insulin Human Lispro (Insulin Lispro 100 Unit/Ml 3 Ml Vial) 0 unit SUBCUT QIDACHS [facility]; Protocol Last Admin: 01/11/23 08:20 Dose: Not Given Magnesium Hydroxide (Milk Of Magnesia 30 Ml Oral.Susp) 30 ml PO DAILY PRN PRN Reason: Constipation Magnesium Oxide (Magnesium Oxide 400 Mg Tablet) 400 mg PO BIDPC [facility] Last Admin: 01/11/23 08:20 Dose: 400 mg Melatonin (Melatonin 3 Mg Tablet) 6 mg PO BEDTIME PRN PRN Reason: Insomnia Last Admin: 01/10/23 21:01 Dose: 6 mg Metformin HCl (Metformin Hcl 1,000 Mg Tablet) 1,000 mg PO BIDWM [facility] Last Admin: 01/11/23 08:20 Dose: 1,000 mg Mirtazapine (Mirtazapine 7.5 Mg Tablet) 7.5 mg PO BEDTIME [facility] Last Admin: 01/10/23 21:01 Dose: 7.5 mg Olanzapine (Olanzapine 5 Mg Tablet) 5 mg PO Q6H PRN PRN Reason: agitation, aggression Trazodone HCl (Trazodone Hcl 25 Mg Halftab) 25 mg PO TID PRN PRN Reason: Anxiety Trazodone HCl (Trazodone Hcl 50 Mg Tablet) 50 mg PO BEDTIME PRN PRN Reason: Insomnia Last Admin: 01/09/23 20:10 Dose: 50 mg Allergies Allergies Allergy/AdvReac Type Severity Reaction Status Date / Time ibuprofen Allergy Unknown Unknown Verified 01/05/23 19:31 lansoprazole [From Prevacid] Allergy Unknown Unknown Verified 01/05/23 19:31 rosuvastatin [From Crestor] Allergy Unknown Unknown Verified 01/05/23 19:31 lipitor Allergy Unknown Unknown Uncoded 01/05/23 19:31 Assessment & Plan Assessment & Plan (1) Dementia: Status: Acute Code(s): F03.90 - Unspecified dementia, unspecified severity, without behavioral disturbance, psychotic disturbance, mood disturbance, and anxiety (2) Mood disorder: Status: Acute Code(s): F39 - Unspecified mood [affective] disorder Plan The patient is an elderly female with a prior history of status post strokes, CAD, CHF, diabetes type 2 and other medical comorbidities referred from the [facility] facility to the emergency room due to increased agitation and confusion. The patient is very confused, very poor historian with try to gather more information from collaterals. At the moment of the intake, there was no evidence of medical concerns or exacerbation of agitation. Plan 1. Gather collateral information. The patient is a very poor historian. 2. We will continue with medical workout and follow recommendations of Medicine. 3. It seems that the patient's dementia is very advanced so will start with a low dose of Aricept tonight. 4. Since there was the evidence of prior agitation and poor impulse control we will start on a very low dose of Depakote at night. 5. Reassessment with results 6. Aricept increased up to 10 mg p.o. q.h.s. on January 11. Reason for continued inpatient stay Substantial Risk for: inability to function, rapid decompensation and med/psych decompensation Time Spent With Patient Time: Total time managing care of this patient today __20__ minutes.
[2023-01-11 11:16] LABS: Glucose, Whole Blood 195 mg/dL (60-115)
[2023-01-11] MEDS: Insulin Lispro 100 UNIT/ML 3 ML VIAL SUBCUT ×2 (12:31→20:14)
[2023-01-11 16:19] LABS: Glucose, Whole Blood 80 mg/dL (60-115)
[2023-01-11 18:00] VITALS: BP 146/64; PULSE 91; RESP 18; TEMP 36.6; O2SAT 95
[2023-01-11 19:50] LABS: Glucose, Whole Blood 182 mg/dL (60-115)
[2023-01-11] MEDS: Mirtazapine 7.5 MG TABLET PO (20:14)
[2023-01-11] MEDS: Donepezil HCl 10 MG TABLET PO (20:14)
[2023-01-11] MEDS: Divalproex Sodium 250 MG TABLET.DR PO (20:14)
[2023-01-12 07:31] LABS: Glucose, Whole Blood 123 mg/dL (60-115)
[2023-01-12 08:30] VITALS: BP 180/70; PULSE 84; RESP 18; TEMP 36.8; O2SAT 98
[2023-01-12] MEDS: Fenofibrate 160 MG TABLET PO (08:33)
[2023-01-12] MEDS: metFORMIN HCl 1,000 MG TABLET 1000 MG PO ×2 (08:33→16:29)
[2023-01-12] MEDS: Magnesium Oxide 400 MG TABLET PO ×2 (08:33→16:29)
--- NOTE | 2023-01-12 09:32 | P.PNPSI_ITS ---
Subjective Subjective Date of Service: 01/12/23 Reason For Visit: F03.91 Subjective Notes: Conditional Voluntary Interim History: The nursing staff reported the patient had been compliant with treatment, she had been irritable with her roommate. She shows some line lability at times but she is easily redirectable. She slept well last night. The long term care social worker reported that she will be discharged tomorrow to a [facility] facility. On interview the patient is confused, very pleasant, denies new symptoms, waiting for placement. Mental Status Exam Mental Status Exam Patient Appearance: Well Grooomed and Appropriate Patient Orientation: Person Level of Consciousness: Awake Patient Behavior: Talkative and Passive Mood Description: Calm Affect Description: Constricted Patient Cognition Impaired: Yes Ability to Follow Directions: Good Speech Pattern: Clear Hallucinations: None Delusions: Not Present Thought Process: Illogical and Distracted Thought Content: positive for [place], positive for Loose Associations and positive for Thought Blocking Judgement: Poor Diagnostics Vital Signs (24Hr): Vital Signs - 24 hr 01/11/23 18:00 01/12/23 08:30 Temperature 98 F 98.2 F Pulse Rate 91 84 Respiratory Rate 18 18 Blood Pressure 146/64 H 180/70 H Pulse Oximetry 95 98 Oxygen Delivery Method Room Air Room Air Labs 01/07/23 07:58 Labs: Laboratory Results - last 48 hr 01/10/23 01/10/23 01/10/23 11:22 16:25 19:57 POC Glucose 134 H 117 H 172 H 01/11/23 01/11/23 01/11/23 07:23 11:07 16:10 POC Glucose 119 H 195 H 80 01/11/23 01/12/23 19:40 07:26 POC Glucose 182 H 123 H Medications Medications Current Medications Acetaminophen (Acetaminophen 325 Mg Tablet) 650 mg PO Q6H PRN PRN Reason: Headache/Pain Mild Scale (1-3) Al Hydroxide/Mg Hydroxide (Magnesium Hydrox/Alum Hydrox 30 Ml Oral.Susp) 30 ml PO Q6H PRN PRN Reason: Heartburn/Nausea Artificial Tears (Artificial Tears 15 Ml Drops) 1 drop EYE-BOTH Q4H PRN PRN Reason: eye dryness Dextrose (Dextrose 50 % 25 Gm/50 Ml Syringe) 25 gm IVPUSH Q15M PRN; Protocol PRN Reason: per Hypoglycemia Standing Ord. Divalproex Sodium (Divalproex Sodium 250 Mg Tablet.) 250 mg PO BEDTIME [facility] Last Admin: 01/11/23 20:14 Dose: 250 mg Donepezil HCl (Donepezil Hcl 10 Mg Tablet) 10 mg PO BEDTIME [facility] Last Admin: 01/11/23 20:14 Dose: 10 mg Fenofibrate (Fenofibrate 160 Mg Tablet) 160 mg PO DAILY [facility] Last Admin: 01/12/23 08:33 Dose: 160 mg Fluticasone/Vilanterol (Fluticasone/Vilanterol 200/25 Blst.W.Dev) 1 puff INHALE RDAILY [facility] Last Admin: 01/11/23 09:01 Dose: 1 puff Glucose (Glucose Gel 15 Gm Gel..Gram.) 15 gm PO Q15M PRN; Protocol PRN Reason: per Hypoglycemia Standing Ord. Insulin Human Lispro (Insulin Lispro 100 Unit/Ml 3 Ml Vial) 0 unit SUBCUT QIDACHS [facility]; Protocol Last Admin: 01/12/23 08:32 Dose: Not Given Magnesium Hydroxide (Milk Of Magnesia 30 Ml Oral.Susp) 30 ml PO DAILY PRN PRN Reason: Constipation Magnesium Oxide (Magnesium Oxide 400 Mg Tablet) 400 mg PO BIDPC [facility] Last Admin: 01/12/23 08:33 Dose: 400 mg Melatonin (Melatonin 3 Mg Tablet) 6 mg PO BEDTIME PRN PRN Reason: Insomnia Last Admin: 01/10/23 21:01 Dose: 6 mg Metformin HCl (Metformin Hcl 1,000 Mg Tablet) 1,000 mg PO BIDWM [facility] Last Admin: 01/12/23 08:33 Dose: 1,000 mg Mirtazapine (Mirtazapine 7.5 Mg Tablet) 7.5 mg PO BEDTIME [facility] Last Admin: 01/11/23 20:14 Dose: 7.5 mg Olanzapine (Olanzapine 5 Mg Tablet) 5 mg PO Q6H PRN PRN Reason: agitation, aggression Trazodone HCl (Trazodone Hcl 25 Mg Halftab) 25 mg PO TID PRN PRN Reason: Anxiety Trazodone HCl (Trazodone Hcl 50 Mg Tablet) 50 mg PO BEDTIME PRN PRN Reason: Insomnia Last Admin: 01/09/23 20:10 Dose: 50 mg Allergies Allergies Allergy/AdvReac Type Severity Reaction Status Date / Time ibuprofen Allergy Unknown Unknown Verified 01/05/23 19:31 lansoprazole [From Prevacid] Allergy Unknown Unknown Verified 01/05/23 19:31 rosuvastatin [From Crestor] Allergy Unknown Unknown Verified 01/05/23 19:31 lipitor Allergy Unknown Unknown Uncoded 01/05/23 19:31 Assessment & Plan Assessment & Plan (1) Dementia: Status: Acute Code(s): F03.90 - Unspecified dementia, unspecified severity, without behavioral disturbance, psychotic disturbance, mood disturbance, and anxiety (2) Mood disorder: Status: Acute Code(s): F39 - Unspecified mood [affective] disorder Plan The patient is an elderly female with a prior history of status post strokes, CAD, CHF, diabetes type 2 and other medical comorbidities referred from the [facility] facility to the emergency room due to increased agitation and confusion. The patient is very confused, very poor historian with try to gather more information from collaterals. At the moment of the intake, there was no evidence of medical concerns or exacerbation of agitation. Plan 1. Gather collateral information. The patient is a very poor historian. 2. We will continue with medical workout and follow recommendations of Medicine. 3. It seems that the patient's dementia is very advanced so will start with a low dose of Aricept tonight. 4. Since there was the evidence of prior agitation and poor impulse control we will start on a very low dose of Depakote at night. 5. Reassessment with results 6. Aricept increased up to 10 mg p.o. q.h.s. on January 11. Reason for continued inpatient stay Substantial Risk for: inability to function, rapid decompensation and med/psych decompensation Time Spent With Patient Time: Total time managing care of this patient today ___20_ minutes.
[2023-01-12 11:19] LABS: Glucose, Whole Blood 187 mg/dL (60-115)
[2023-01-12] MEDS: Insulin Lispro 100 UNIT/ML 3 ML VIAL SUBCUT ×3 (11:21→20:58)
[2023-01-12 16:12] LABS: Glucose, Whole Blood 197 mg/dL (60-115)
[2023-01-12 18:00] VITALS: BP 140/60; PULSE 91; RESP 18; TEMP 35.6; O2SAT 97
[2023-01-12] MEDS: Donepezil HCl 10 MG TABLET PO (20:49)
[2023-01-12] MEDS: Mirtazapine 7.5 MG TABLET PO (20:49)
[2023-01-12] MEDS: Divalproex Sodium 250 MG TABLET.DR PO (20:49)
[2023-01-12 21:22] LABS: Glucose, Whole Blood 151 mg/dL (60-115)
[2023-01-12] MEDS: traZODone HCL 50 MG TABLET PO (23:07)
[2023-01-13 07:56] LABS: Glucose, Whole Blood 161 mg/dL (60-115)
[2023-01-13 08:00] VITALS: BP 167/72; PULSE 91; RESP 18; TEMP 35.8; O2SAT 97
--- NOTE | 2023-01-13 08:21 | PM.PSYDC ---
DS: Providers Provider Date of Service: 01/13/23 Date of admission: 01/05/23 19:09 Date of discharge: 01/13/23 Primary care physician: Unknown Physician Consults: 01/05/23 19:31 Consult to Hospitalist Routine Comment: pt is in the building Consulting Provider: Hospitalist Reason For Exam: transfer pt Attending physician on discharge: Figueroa Peña DS: Diagnosis Discharge Diagnosis (1) Dementia: Status: Acute (2) Mood disorder: Status: Acute DS: Medications Discharge Medications Home Medications: Home Medications Medication Instructions Recorded Confirmed bisacodyl 10 mg rectal suppository 10 mg GA DAILY PRN Constipation 01/06/23 01/06/23 cholecalciferol (vitamin D3) 2,000 units PO DAILY 01/06/23 01/06/23 cyanocobalamin (vitamin B-12) 1,000 units PO DAILY 01/06/23 01/06/23 dextrose 40 % oral gel (Glucose 15 g PO Q15M PRN Hypoglycemia 01/06/23 01/06/23 Gel) fenofibrate 160 mg tablet 160 mg PO DAILY 01/06/23 01/06/23 glucagon 1 mg solution for 1 mg subcut Q20M PRN Hypoglycemia 01/06/23 01/06/23 injection (Glucagon Emergency Kit) ipratropium 0.5 mg-albuterol 3 mg 3 ml inhalation Q6H PRN Shortness 01/06/23 01/06/23 (2.5 mg base)/3 mL nebulization Of Breath Or Wheezing soln magnesium hydroxide 400 mg/5 mL 400 mg PO DAILY PRN Constipation 01/06/23 01/06/23 oral suspension (Milk of Magnesia) melatonin 3 mg tablet 9 mg BEDTIME 01/06/23 01/06/23 metformin 1,000 mg tablet 1,000 mg PO BID 01/06/23 01/06/23 sodium phosphates 19 gram-7 118 ml GA DAILY PRN Constipation 01/06/23 01/06/23 gram/118 mL enema (Fleet Enema) sodium phosphates 19 gram-7 118 ml GA DAILY PRN Constipation 01/06/23 01/06/23 gram/118 mL enema (Fleet Enema) Mental Status Exam Mental Status Exam Patient Appearance: Well Grooomed and Appropriate Patient Orientation: Person Level of Consciousness: Awake and Appropriate Patient Behavior: Cooperative Mood Description: Calm Affect Description: Constricted Patient Cognition Impaired: Yes Ability to Follow Directions: Good Speech Pattern: Clear Hallucinations: None Delusions: Not Present Thought Process: Illogical, Distracted and Slowed Thinking Thought Content: positive for [place], positive for Circumstantial and positive for Poverty of Content Judgement: Poor Data Data Completed and Pending Completed studies during hospitalization [Text1]: 01/06/23 01/06/23 01/06/23 08:02 08:02 08:02 Sodium Potassium Chloride Carbon Dioxide Anion Gap BUN Creatinine Estim Creat Clear Calc Estimated GFR POC Glucose Random Glucose Estimat Average Glucose 171 Hemoglobin A1c % 7.6 Calcium Magnesium 1.4 L* Triglycerides 196 Cholesterol 138 LDL Cholesterol, Calc 63 HDL Cholesterol 36 Vitamin B12 587 Folate 12.6 TSH 2.00 Free T4 1.10 01/06/23 01/06/23 01/06/23 08:02 16:31 20:38 Sodium 139 Potassium 4.0 Chloride 106 Carbon Dioxide 25 Anion Gap 12 BUN 27 H Creatinine 1.30 Estim Creat Clear Calc TNP Estimated GFR 39 POC Glucose 213 H 98 Random Glucose 133 H Estimat Average Glucose Hemoglobin A1c % Calcium 9.2 Magnesium Triglycerides Cholesterol LDL Cholesterol, Calc HDL Cholesterol Vitamin B12 Folate TSH Free T4 01/07/23 01/07/23 01/07/23 07:58 07:59 11:28 Sodium 139 Potassium 4.5 Chloride 107 Carbon Dioxide 22 Anion Gap 15 BUN 25 H Creatinine 1.09 Estim Creat Clear Calc TNP Estimated GFR 48 POC Glucose 147 H 195 H Random Glucose 133 H Estimat Average Glucose Hemoglobin A1c % Calcium 9.3 Magnesium 1.7 Triglycerides Cholesterol LDL Cholesterol, Calc HDL Cholesterol Vitamin B12 Folate TSH Free T4 01/07/23 01/07/23 01/08/23 16:34 20:09 08:10 Sodium Potassium Chloride Carbon Dioxide Anion Gap BUN Creatinine Estim Creat Clear Calc Estimated GFR POC Glucose 166 H 230 H 129 H Random Glucose Estimat Average Glucose Hemoglobin A1c % Calcium Magnesium Triglycerides Cholesterol LDL Cholesterol, Calc HDL Cholesterol Vitamin B12 Folate TSH Free T4 01/08/23 01/08/23 01/08/23 11:15 16:06 19:51 Sodium Potassium Chloride Carbon Dioxide Anion Gap BUN Creatinine Estim Creat Clear Calc Estimated GFR POC Glucose 187 H 195 H 160 H Random Glucose Estimat Average Glucose Hemoglobin A1c % Calcium Magnesium Triglycerides Cholesterol LDL Cholesterol, Calc HDL Cholesterol Vitamin B12 Folate TSH Free T4 01/09/23 01/09/23 01/09/23 07:58 11:42 16:42 Sodium Potassium Chloride Carbon Dioxide Anion Gap BUN Creatinine Estim Creat Clear Calc Estimated GFR POC Glucose 123 H 162 H 239 H Random Glucose Estimat Average Glucose Hemoglobin A1c % Calcium Magnesium Triglycerides Cholesterol LDL Cholesterol, Calc HDL Cholesterol Vitamin B12 Folate TSH Free T4 01/09/23 01/10/23 01/10/23 20:08 07:41 11:22 Sodium Potassium Chloride Carbon Dioxide Anion Gap BUN Creatinine Estim Creat Clear Calc Estimated GFR POC Glucose 111 114 134 H Random Glucose Estimat Average Glucose Hemoglobin A1c % Calcium Magnesium Triglycerides Cholesterol LDL Cholesterol, Calc HDL Cholesterol Vitamin B12 Folate TSH Free T4 01/10/23 01/10/23 01/11/23 16:25 19:57 07:23 Sodium Potassium Chloride Carbon Dioxide Anion Gap BUN Creatinine Estim Creat Clear Calc Estimated GFR POC Glucose 117 H 172 H 119 H Random Glucose Estimat Average Glucose Hemoglobin A1c % Calcium Magnesium Triglycerides Cholesterol LDL Cholesterol, Calc HDL Cholesterol Vitamin B12 Folate TSH Free T4 01/11/23 01/11/23 01/11/23 11:07 16:10 19:40 Sodium Potassium Chloride Carbon Dioxide Anion Gap BUN Creatinine Estim Creat Clear Calc Estimated GFR POC Glucose 195 H 80 182 H Random Glucose Estimat Average Glucose Hemoglobin A1c % Calcium Magnesium Triglycerides Cholesterol LDL Cholesterol, Calc HDL Cholesterol Vitamin B12 Folate TSH Free T4 01/12/23 01/12/23 01/12/23 07:26 11:11 16:06 Sodium Potassium Chloride Carbon Dioxide Anion Gap BUN Creatinine Estim Creat Clear Calc Estimated GFR POC Glucose 123 H 187 H 197 H Random Glucose Estimat Average Glucose Hemoglobin A1c % Calcium Magnesium Triglycerides Cholesterol LDL Cholesterol, Calc HDL Cholesterol Vitamin B12 Folate TSH Free T4 01/12/23 01/13/23 20:48 07:52 Sodium Potassium Chloride Carbon Dioxide Anion Gap BUN Creatinine Estim Creat Clear Calc Estimated GFR POC Glucose 151 H 161 H Random Glucose Estimat Average Glucose Hemoglobin A1c % Calcium Magnesium Triglycerides Cholesterol LDL Cholesterol, Calc HDL Cholesterol Vitamin B12 Folate TSH Free T4 DS: Summary Hospital Course Hospital Course: The patient is an 82-year-old female, resident of a [facility] facility with dementia admitted for exacerbation of psychotic symptoms and disorganized behavior. Please see the HPI of the admission note for further details. On admission, the patient was very confused but pleasant and cooperative, unable to provide details why she was brought here. Apparently she had a UTI a few days ago that was treated when she came her medical workout came back negative. Still, she was confused but redirectable. We discussed medical treatment with her providers and since the patient is severely demented, we involved her healthcare proxy. We started on Depakote with good tolerability and resolution of her impulsivity and agitation. Also since she was demented we started on Aricept titrated up to 10 mg p.o. q.h.s. with no evidence of side effects. At this moment, the patient is able to go back to her [facility] facility and continue treatment as an outpatient. No safety concerns. Time spent discussing smoking cessation with patient: 3 to 10 minutes Status at Discharge Cognitive/behavioral status at discharge: Impaired at baseline Functional status at discharge: independent ambulation Overall status at discharge: patient is back to baseline Time Spent with Patient Time attestation: Total time managing care of this patient today _30___ minutes. Time spent: Less than 30 minutes Discharge Plan Discharge Anticipated Discharge Date/Time: 01/13/23 11:00 Patient Disposition: Xfer SNF Discharge Diagnosis: Dementia Mood disorder Referrals: [facility] [Other] - 01/13/23 10:30 am ([facility] ) Discharge Medications: New divalproex 250 mg Tablet,Delayed Release (Dr/Ec) 250 mg PO BEDTIME 30 Days Qty: 30 0RF trazodone 50 mg Tablet 50 mg PO BEDTIME PRN (Reason: Insomnia) 30 Days Qty: 30 0RF donepezil 10 mg Tablet 10 mg PO BEDTIME 30 Days Qty: 30 0RF dextrose [Glutose-15] 40 % Gel 15 g PO Q15M PRN (Reason: Per Hypoglycemia Standing Ord.) 30 Days Qty: 15 0RF Protocol: Glucose Gel Hypoglycemia Standing Order Protocol Text: For patients able to take PO (patient cooperative and able to swallow). Give Glucose Gel 15 gm PO for Blood Glucose (BG) < 70. Repeat BG every 15 min until BG > 70 x 3, if BG still < 70 and/or patient symptomatic repeat glucose gel or rapid acting carbohydrate. Notify MD if BG does not improve with treatment. melatonin 3 mg Tablet 6 mg PO BEDTIME PRN (Reason: Insomnia) 30 Days Qty: 90 0RF magnesium oxide 400 mg (241.3 mg magnesium) Tablet 400 mg PO BIDPC 30 Days Qty: 60 0RF dextrose 50 % in water (D50W) Syringe 25 g IVPUSH Q15M PRN (Reason: Per Hypoglycemia Standing Ord.) 30 Days Qty: 1 0RF Protocol: Dextrose 50% Hypoglycemia Standing Order Protocol Text: For patients who are NPO and have IV Access available (patient unconscious, uncooperative or unable to swallow and have IV Access available), Give Dextrose 50% - 25 gm IVPUSH for Blood Glucose (BG) < 70. Repeat BG every 15 min until BG > 70 x 3, if BG still < 70 and/or patient symptomatic repeat 50 % Dextrose 25 Gm IVPUSH. Notify MD if BG does not improve with treatment. mirtazapine 7.5 mg Tablet 7.5 mg PO BEDTIME 30 Days Qty: 30 0RF fenofibrate 160 mg Tablet 160 mg PO DAILY 30 Days Qty: 30 0RF fluticasone furoate-vilanterol [Breo Ellipta] 200-25 mcg/dose Blister With Device 1 ea inhalation RDAILY 30 Days Qty: 60 0RF Continued magnesium hydroxide [Milk of Magnesia] 400 mg/5 mL Suspension 400 mg PO DAILY PRN (Reason: Constipation) 30 Days Qty: 30 0RF bisacodyl 10 mg Suppository 10 mg GA DAILY PRN (Reason: Constipation) 30 Days Qty: 30 0RF metformin 1,000 mg Tablet 1,000 mg PO BID 30 Days Qty: 60 0RF Fleet Enema 19-7 gram/118 mL Enema 118 ml GA DAILY PRN (Reason: Constipation) 30 Days Qty: 1 0RF Glucagon Emergency Kit (human) 1 mg Recon Soln 1 mg SUBCUT Q20M PRN (Reason: Hypoglycemia) 30 Days Qty: 1 0RF Rx Instructions: BGL < 60. Repeat BGL check in 15min. cholecalciferol (vitamin D3) 2,000 UNITS 2,000 units PO DAILY 30 Days Qty: 30 0RF cyanocobalamin (vitamin B-12) 1,000 UNITS 1,000 units PO DAILY 30 Days Qty: 30 0RF Discontinued fenofibrate 160 mg tablet 160 mg PO DAILY dextrose [Glucose Gel] 40 % Gel 15 g PO Q15M PRN (Reason: Hypoglycemia) Rx Instructions: BGL < 80. Repeat BGL check in 15min. Fleet Enema 19-7 gram/118 mL Enema 118 ml GA DAILY PRN (Reason: Constipation) ipratropium-albuterol 0.5 mg-3 mg(2.5 mg base)/3 mL Solution For Nebulization 3 ml INHALATION Q6H PRN (Reason: Shortness Of Breath Or Wheezing) melatonin 3 mg Tablet 9 mg BEDTIME Discharge Orders: Discharge Order (Routine); Ordered 01/13/23 Ordered By: Figueroa Peña Diet: Advance to usual diet Activity on Discharge: As tolerated Stand Alone Forms: Patient Portal Discharge page Care Plan Goals: Care plan goals achieved in this admission Health Concerns: Continue with primary care physician as an outpatient Plan of Treatment: Continue treatment as an outpatient Assessment: Elderly female with a history of dementia became more agitated and delusional. She was started on Depakote with for improvement of her symptoms and no evidence of impulsivity or violent behavior. At this moment the patient is safe to go back into her f[facility] facility. We added Aricept to target dementia.
[2023-01-13] MEDS: Magnesium Oxide 400 MG TABLET PO (08:25)
[2023-01-13] MEDS: Fenofibrate 160 MG TABLET PO (08:25)
[2023-01-13] MEDS: metFORMIN HCl 1,000 MG TABLET 1000 MG PO (08:26)
[2023-01-13] MEDS: Insulin Lispro 100 UNIT/ML 3 ML VIAL SUBCUT (08:33)
[2023-01-13] MEDS: Fluticasone/Vilanterol 200/25 BLST.W.DEV 1 PUFF INHALE (08:35)
--- NOTE | 2023-01-13 11:24 | PC.NURSE ---
Patient alert and oriented x 2. Pt pleasant and cooperative. Reports readiness for discharge. Educated on medications. Patient discharged with personal belongings. Left to the [facility] in [place] via ambulance at 1038. Pt denied pain. No SOB or respiratory distress noted.
== END 2023-01-13 10:38 | disposition skilled nursing facility (03) | DRG 885 ==
PROVIDERS: Clinical Nurse Specialist Psychiatric/Mental Health, Adult; Physician Assistant; Admitting Provider Psychiatry & Neurology Psychiatry; Visit Provider Psychiatry & Neurology Psychiatry
DX: F39 Unspecified mood [affective] disorder (principal); I25.10 Atherosclerotic heart disease of native coronary artery without angina pectoris; F03.90 Unspecified dementia, unspecified severity, without behavioral disturbance, psychotic disturbance, mood disturbance, and anxiety; E11.9 Type 2 diabetes mellitus without complications; E83.42 Hypomagnesemia; J44.9 Chronic obstructive pulmonary disease, unspecified; E78.5 Hyperlipidemia, unspecified; Z87.891 Personal history of nicotine dependence; Z79.51 Long term (current) use of inhaled steroids; Z79.84 Long term (current) use of oral hypoglycemic drugs; Z79.899 Other long term (current) drug therapy
CPT/HCPCS: 36415; 80048; 80061; 82607; 82746; 82947; 83036; 83735; 84439; 84443; 93005; 94640

== ENCOUNTER → 2023-01-05 19:09 | Outpatient (BNV) | payer MEDICARE, MEDICAID, SELFPAY | PROVIDERS: Admitting Provider Psychiatry & Neurology Psychiatry; Visit Provider Psychiatry & Neurology Psychiatry | DX: F03.90 Unspecified dementia, unspecified severity, without behavioral disturbance, psychotic disturbance, mood disturbance, and anxiety (principal); F39 Unspecified mood [affective] disorder | CPT/HCPCS: 90792; 99231; 99232; 99238 ==

== ENCOUNTER → 2023-01-05 19:09 | Outpatient (BNV) | payer MEDICARE, MEDICAID, SELFPAY | PROVIDERS: Admitting Provider Psychiatry & Neurology Psychiatry; Visit Provider Physician Assistant | DX: Z00.00 Encounter for general adult medical examination without abnormal findings (principal); E83.42 Hypomagnesemia | CPT/HCPCS: 99222 ==